=== PATIENT | male | born 1955 | race Caucasian/White ===

== ENCOUNTER 2017-07-15 09:06 | Emergency (ER) | payer OTHER ==
[~2017-07-15] VITALS: Ht 180.3 cm; Wt 79.4 kg
[~2017-07-15 09:06] MED LIST: AUGMENTIN 875875 MG PO; NOHOMEMEDICATIONS; NORVASC 5 MG TAB5 MG PO
[2017-07-15] MEDS ORDERED: UNKNOWN BP MED (09:18)
[2017-07-15] MEDS ORDERED: NAPROSYN500 MG PO (09:42)
[2017-07-15 10:41] VITALS: BP 115/69
== END 2017-07-15 10:43 | disposition home or self-care (01) ==
LOC: ER 09:06
DX: S93.401A Sprain of unspecified ligament of right ankle, initial encounter (principal); W18.40XA Slipping, tripping and stumbling without falling, unspecified, initial encounter; Y93.89 Activity, other specified; Y92.89 Other specified places as the place of occurrence of the external cause; Y99.0 Civilian activity done for income or pay

== ENCOUNTER 2017-08-05 08:12 | Emergency (ER) | payer OTHER ==
[~2017-08-05] VITALS: Ht 180.3 cm; Wt 77.1 kg
[~2017-08-05 08:12] MED LIST changes: +NAPROSYN500 MG PO; +UNKNOWN BP MED
[2017-08-05 08:15] VITALS: BP 144/82
[2017-08-05] MEDS ORDERED: NORVASC5 MG PO (08:43)
[2017-08-05] MEDS ORDERED: DOXYCYCLINE 10100 MG PO (08:54)
== END 2017-08-05 09:03 | disposition home or self-care (01) ==
LOC: ER 08:12
DX: H05.222 Edema of left orbit (principal); H02.824 Cysts of left upper eyelid; F17.210 Nicotine dependence, cigarettes, uncomplicated; F10.99 Alcohol use, unspecified with unspecified alcohol-induced disorder